=== PATIENT | male | born 1995 | race Caucasian/White ===

== ENCOUNTER 2023-12-03 01:45 | Emergency (ER) | payer SELFPAY ==
[~2023-12-03] VITALS: Ht 188 cm; Wt 68.0 kg
[2023-12-03 01:56] VITALS: BP 120/84; PULSE 100; RESP 18; TEMP 98; O2SAT 98
[2023-12-03 02:46] VITALS: BP 120/84; PULSE 100; RESP 18; TEMP 98; O2SAT 98
== END 2023-12-03 02:47 | disposition home or self-care (01) ==
LOC: MED 01:45
DX: F10.129 Alcohol abuse with intoxication, unspecified (principal); Y04.8XXA Assault by other bodily force, initial encounter; Y93.89 Activity, other specified; Y92.89 Other specified places as the place of occurrence of the external cause; Y99.8 Other external cause status; Y90.9 Presence of alcohol in blood, level not specified
CPT/HCPCS: 99283